=== PATIENT | male | born 1955 | race African-American/Black ===

== ENCOUNTER 2018-01-06 14:10 | Inpatient (IN) | payer BC, SELFPAY ==
[2018-01-06] MEDS ORDERED: Ondansetron HCl/PF 4 MG/2 ML Vial ONE (14:45)
[2018-01-06 15:37] LABS: #Basophils 0.1 thou/uL (0.0-0.2); #Lymphocytes 1.7 thou/uL (1.20-3.40); #Monocytes 0.8 thou/uL (0.11-0.59); #Neutrophils 7.6 thou/uL (1.40-6.50); %Basophils 0.5 % (0.0-1.0); %Eosinophils 0.3 % (0.0-10.0); %Lymphocytes 16.6 % (21.0-51.0); %Monocytes 7.9 % (0.0-10.0); %Neutrophils 74.8 % (42.0-75.0); Hemoglobin 13.7 g/dL (14.0-18.0); Mean Corpuscular HGB CONC 33.6 g/dL (32.0-36.0); Mean Platelet Volume 7.7 fL (7.4-10.4); Platelet Count 262 thou/uL (130-400); RBC Distribution Width 13.1 % (11.5-14.5); White Blood Cell (WBC) Count 10.2 thou/uL (4.8-10.8)
[2018-01-06 15:39] LABS: ALT (SGPT) 30 U/L (8-55); AST (SGOT) 104 U/L (5-34); Alkaline Phosphatase 79 U/L (40-150); Anion Gap 23 mmol/L (10-20); BUN (Urea Nitrogen) 10 mg/dL (8.4-25.7); Bilirubin, Total 2.3 mg/dL (0.2-1.2); Calc. Creatinine Clearance 0 mL/min (70-130); Calcium 9.4 mg/dL (7.8-10.44); Carbon Dioxide 27 mmol/L (23-31); Chloride 87 mmol/L (98-107); Estimated GFR-MDRD 32; Globulin 4.8 g/dL (2.4-3.5); Glucose 101 mg/dL (80-115); Lipase 97 U/L (8-78); Potassium 3.4 mmol/L (3.5-5.1); Protein, Total 9.8 g/dL (5.8-8.1); Sodium 134 mmol/L (136-145)
[2018-01-06] MEDS ORDERED: Ondansetron HCl/PF 4 MG/2 ML Vial IVP PRN (18:53)
[2018-01-06] MEDS ORDERED: Guaifenesin DM 100-10/5 ML UDCUP PO PRN (18:53)
[2018-01-06] MEDS: Lactated Ringer's 1,000 ML IV SCH (19:43)
[2018-01-06] MEDS ORDERED: Ciprofloxacin Lactate/D5W 200 MG in Premix Bag 1 BAG IVPB SCH (20:00)
[2018-01-06 20:34] VITALS: BMI 18.8
[2018-01-06 20:40] LABS: HBCM Index 0.09 S/CO (0-0.79); HBSAg Index 0.25 S/CO (0-0.99); HIV (1/2) Antibody/Antigen Non-Reactive (NonReactive); HIV 1/2 INDEX 0.16 S/CO (<1.00); Hep A IgM AB Non-Reactive (NonReactive); Hep A IgM S/CO 0.11 S/CO (0-0.79); Hep B Surf Ag Non-Reactive S/CO (NonReactive); Hep C IgG Ab Non-Reactive (NonReactive); Hep C Index 0.09 S/CO (0-0.79); Hepatitis B Core IGM Abs Non-Reactive (NonReactive)
[2018-01-06] MEDS: metroNIDAZOLE 250 MG in Admixture Fee 1 EACH IVPB SCH (22:03)
--- NOTE | 2018-01-06 22:11 | CT ---
CT OF ABDOMEN AND PELVIS PERFORMED WITHOUT CONTRAST ENHANCEMENT: 01/06/18 HISTORY: Abdominal pain, nausea and vomiting. COMPARISON: None. The lung bases are clear. The liver, spleen, and pancreas regions are unremarkable. Gallstones are no laureano. The right and left adrenal glands are normal. There is a severely atrophic right kidney. The left kid chris shows a lobulated contour. There s marked dilatation of the left collecting system as very dilate d left ureter to just below the pelvic brim at which point there is an abrupt change in caliber to a normal caliber distal 4 to 5 cm of the ureter. The bladder wall is thickened. There is no significant pelvic lymphadenopathy. No significant mesenteric or periaortic adenopathy. Colonic diverticulosis is incidentally noted. IMPRESSION: 1. Severely atrophic right kidney with some compensatory hypertrophy to the left kidney with wha t appears to be severe chronic hydronephrosis and hydroureter of the left collecting system. The uret er is dilated to below the pelvic brim where it abruptly changes to normal caliber. It could be relat ed to a stricture or some type of mass at this level. The dilatation appears chronic as the ureter is dilated distally by as much as 2.4 cm. 2. Bladder wall thickening. 3. Colonic diverticulosis. 4. Normal appendix. POS: [facility]
[2018-01-06 22:20] LABS: Bilirubin Moderate (Negative); Clarity CLEAR (Clear); Glucose, Urine (Dipstick) Negative (Negative); Leukocyte Negative (Negative); Nitrite Negative (Negative); Protein, Urine (Dipstick) 300 mg/dL (Neg-Trace); Specific Gravity, Urine 1.012 (1.002-1.036)
[2018-01-06 22:23] LABS: Bacteria/HPF None Seen HPF (None Seen); Blood, Urine Negative (Negative); Hyaline Casts/LPF 4-6 HYALINE CAST LPF (0-3 Hyaline); Pathc Cast-AUWi Flag 0.87 (0-2.49); RBC/HPF 0-3 HPF (0-3); Squamous Epithelial 0-3 HPF (0-3); WBC/HPF 0-3 HPF (0-3)
--- NOTE | 2018-01-06 23:28 | HP ---
REASON FOR ADMISSION: Severe dehydration, acute kidney injury, acute gastroenteritis. HISTORY OF PRESENT ILLNESS: The patient gives history of severe nausea and vomiting from the last two days. He has not been able to keep anything down. His vomiting has been bilious (green). He has also had diarrhea from last 5 days and it has been watery. No blood in the stool. There is no mucus in the stool. He has lost appetite and does not feel like eating anymore. He is also shaking and does not have strength to ambulate. He finally called his sister who in turn called EMS and patient was brought here. PAST MEDICAL AND SURGICAL HISTORY: Hypertension, benign prostatic hypertrophy, depression. CURRENT MEDICATIONS: Tamsulosin 0.4 mg p.o. daily, sertraline 50 mg daily, folic acid 1 mg daily. ALLERGIES: No known drug allergies. PERSONAL HISTORY: Does not abuse alcohol except for social drinking or drugs. No history of smoking. He ambulates by himself. Works in [employer]. FAMILY HISTORY: Mother is healthy and living. Father of kidney cancer at the age of 86 years. The patient is single, not and has no children. CODE STATUS: FULL. Power of corporate attorney is one of his sisters. It is either, Ms. Humza Loera or Ms. Elena Lange. REVIEW OF SYSTEMS: The following complete review of systems was negative, unless otherwise mentioned in the HPI or below: Constitutional: Weight loss or gain, ability to conduct usual activities. Skin: Rash, itching. Eyes: Double vision, pain. ENT/Mouth: Nose bleeding, neck stiffness, pain, tenderness. Cardiovascular: Palpitations, dyspnea on exertion, orthopnea. Respiratory: Shortness of breath, wheezing, cough, hemoptysis, fever or night sweats. Gastrointestinal: Poor appetite, abdominal pain, heartburn, nausea, vomiting, constipation, or diarrhea. Genitourinary: Urgency, frequency, dysuria, nocturia. Musculoskeletal: Pain, swelling. Neurologic/Psychiatric: Anxiety, depression. Allergy/Immunologic: Skin rash, bleeding tendency. PHYSICAL EXAMINATION: GENERAL: The patient is a 62-year-old male who is currently not in any acute distress. VITAL SIGNS: Blood pressure 160/112, pulse 100 per minute, respiratory rate is 18 per minute, temperature 98.5 degrees Fahrenheit, saturating 96% on room air. NECK: Supple, no elevated JVD. HEENT: Extraocular muscles intact. Pupils reacting to light. Oral cavity mucous membranes are dry. No exudates or congestion. CARDIOVASCULAR: S1, S2 heard. Regular rhythm. RESPIRATORY: Air entry 1+ bilaterally. No rales or rhonchi. ABDOMEN: Soft, bowel sounds heard. No tenderness, rigidity or guarding. The patient has voluntary guarding likely he is very sensitive to touch and feels ticklish. EXTREMITIES: No peripheral edema or calf tenderness. VASCULAR SYSTEM: Peripheral pulses 1+ bilateral, no ischemic ulcerations or gangrene. CENTRAL NERVOUS SYSTEM: No gross focal deficits noted. Patient is alert, awake , oriented well. PSYCHIATRIC: The patient's mood is euthymic. No hallucinations or delusions. LABORATORY AND X-RAY FINDINGS: White count of 10, H&H 13 and 40, platelet count is 262, MCV is 104 with 74% neutrophils. Potassium is 3.4, serum bicarbonate 27, BUN 10, creatinine 2.4, total bilirubin 2.3, AST 104, ALT 30, albumin is 5.0, lipase is 97. CLINICAL IMPRESSION AND PLAN: The patient will be admitted to medical floor for severe dehydration with acute kidney injury and gastroenteritis. We will obtain stool studies, blood and urine cultures as well. CT of the abdomen and pelvis without contrast in view of elevated lipase and abnormal liver enzymes/r/ o obstructive uropathy. We will obtain an HIV test along with C. diff and acute hepatitis panel as well. He will be on ringer lactate 100 mL per hour. Cipro and Flagyl empirically until cultures are back. We will consult checking department supervisor, Dr. Michael Root and Dr. Ceballos for Nephrology as well. The patient might have a component of chronic kidney disease/hypertensive nephrosclerosis looking at the ratio of BUN and creatinine. We will first hydrate him aggressively and see for any change in his renal function. MAKD
--- NOTE | 2018-01-07 00:20 | CON ---
DATE OF CONSULTATION: 01/06/2018 CONSULTING PHYSICIAN: Tucker Haddad M.D. REQUESTING PHYSICIAN: Dr. Cox. REASON FOR CONSULTATION: Elevated creatinine. IMPRESSION: 1. Elevated creatinine. This is likely acute kidney injury versus acute on chronic kidney disease i n the context of increased gastrointestinal loss. 2. Hypokalemia, likely related to dehydration, excessive gastrointestinal loss. 3. Hyperproteinemia which is likely in the context of intravascular depletion/hemoconcentration. PLAN: 1. Urinalysis to evaluate for any potential hematuria/proteinuria. 2. Renally dose all medications. 3. Rehydrate this patient and address the hypokalemia also. 4. Avoid potentially nephrotoxic agents. 5. If renal function does not improve significantly, patient to benefit from renal ultrasound. HISTORY OF PRESENT ILLNESS: History is that of 62-year-old grannis gentleman who presented here with ab dominal discomfort with nausea, vomiting, and diarrhea as well as have abdominal pain and noted with slightly elevated lipase as well as elevated creatinine. The patient does not have any history of ki dney disease, denies hematuria or frothy urine. As a result of the elevated creatinine, decision has been taken to involve Renal in the management of this case. PAST MEDICAL HISTORY: Significant for hypertension. MEDICATIONS: Reviewed and as documented on [employer]. ALLERGIES: No known drug allergy. FAMILY HISTORY: No family history of kidney disease. SOCIAL HISTORY: The patient works at [employer]. No alcohol, no illicit drug use. REVIEW OF SYSTEMS: As documented in the body of the history, the patient seems to be anxious, tremul ous. Otherwise, the rest of the system examination unremarkable. PHYSICAL EXAMINATION: GENERAL: The patient was found to be somewhat jittery with the following vital signs VITAL SIGNS: Afebrile, temperature 99.3, pulse 106, respiratory rate of 18, O2 sat 94% with blood pr essure 150/91. HEENT: Unremarkable. Moist oral mucosa. NECK: Supple. No conjunctival injection or icterus. CARDIOVASCULAR SYSTEM: First and second heart sounds were heard. RESPIRATORY SYSTEM: Clear to auscultation. DIGESTIVE SYSTEM: Revealed a benign abdomen with positive bowel sounds. EXTREMITIES: No peripheral edema. SKIN: No new gross rash. LYMPHATICS: No peripheral lymphadenopathy. SUMMARY: A 62-year-old gentleman who presented here with abdominal discomfort, nausea, vomiting, and diarrhea, and noted with elevated creatinine. Thank you for this consultation. We will follow with you.
--- NOTE | 2018-01-07 01:25 | PDOC.EVN ---
Event Note - Event Note Event Note: ct result followed, pt has severe chronic hydronephrosis, no signs of sepsis, SIRS, or acute complications except for increase bun/cr that could have been due to dehydration, not to obstruction or hydronephrosis since Pt's creatinine has improved overnight after hydration, we will consult urology will follow recommendations.
[2018-01-07 02:48] LABS: Anion Gap 19 mmol/L (10-20); BUN (Urea Nitrogen) 10 mg/dL (8.4-25.7); Calc. Creatinine Clearance 31 mL/min (70-130); Calcium 7.7 mg/dL (7.8-10.44); Carbon Dioxide 26 mmol/L (23-31); Chloride 94 mmol/L (98-107); Estimated GFR-MDRD 41; Glucose 80 mg/dL (80-115); Potassium 3.3 mmol/L (3.5-5.1); Sodium 136 mmol/L (136-145)
[2018-01-07] MEDS: Lactated Ringer's 1,000 ML IV SCH ×2 (04:44→14:02)
[2018-01-07] MEDS: metroNIDAZOLE 250 MG in Admixture Fee 1 EACH IVPB SCH ×2 (04:45→14:01)
[2018-01-07 05:22] LABS: #Basophils 0.1 thou/uL (0.0-0.2); #Eosinphils 0.1 thou/uL (0.0-0.7); #Lymphocytes 2.2 thou/uL (1.20-3.40); #Monocytes 0.7 thou/uL (0.11-0.59); %Basophils 0.8 % (0.0-1.0); %Eosinophils 0.9 % (0.0-10.0); %Lymphocytes 24.4 % (21.0-51.0); %Monocytes 7.5 % (0.0-10.0); %Neutrophils 66.5 % (42.0-75.0); Hemoglobin 12.1 g/dL (14.0-18.0); Mean Corpuscular HGB CONC 33.8 g/dL (32.0-36.0); Mean Corpuscular Hemoglobin 35.6 pg (27.0-31.0); Mean Platelet Volume 7.5 fL (7.4-10.4); Platelet Count 206 thou/uL (130-400); RBC Distribution Width 12.9 % (11.5-14.5); White Blood Cell (WBC) Count 9.1 thou/uL (4.8-10.8)
[2018-01-07 05:32] LABS: Albumin 4.1 g/dL (3.4-4.8); Anion Gap 19 mmol/L (10-20); BUN (Urea Nitrogen) 11 mg/dL (8.4-25.7); BUN/Creatinine Ratio 5.53; Calc. Creatinine Clearance 32 mL/min (70-130); Carbon Dioxide 26 mmol/L (23-31); Chloride 94 mmol/L (98-107); Estimated GFR-MDRD 41; Glucose 83 mg/dL (80-115); Phosphorus 2.9 mg/dL (2.3-4.7); Potassium 3.4 mmol/L (3.5-5.1); Sodium 136 mmol/L (136-145)
[2018-01-07] MEDS: Tamsulosin HCl 0.4 MG CAP PO SCH (08:45)
[2018-01-07] MEDS: Vancomycin HCl 25 MG/ML Oral PO SCH ×4 (08:45→20:19)
[2018-01-07] MEDS: Enoxaparin Sodium 30 MG/0.3 ML SYRINGE SC SCH (08:46)
[2018-01-07] MEDS: Folic Acid 1 MG TAB PO SCH (08:46)
--- NOTE | 2018-01-07 11:24 | PDOC.PN ---
- Subjective Encounter Start Date: 01/07/18 Encounter Start Time: 11:22 Says he has kept water down. Feels like he could eat. - Objective Resuscitation Status: Resuscitation Status FULL:Full Resuscitation Vital Signs & Weight: Vital Signs (12 hours) Temp Pulse Resp BP BP Pulse Ox 01/07/18 07:09 98.8 F 106 H 16 177/108 H 98 01/07/18 05:09 144/85 H 01/07/18 04:24 99 F 101 H 16 158/103 H 01/07/18 00:00 98.6 F 109 H 16 153/98 H 98 Weight Weight 127 lb 13.89 oz I&O: 01/06/18 01/07/18 01/08/18 06:59 06:59 06:59 Intake Total 1230 Output Total 250 Balance 980 Result Diagrams: 01/07/18 04:50 01/07/18 04:50 Phys Exam - Physical Examination Constitutional: NAD Shaky HEENT: PERRLA Respiratory: no wheezing, no rales, no rhonchi, clear to auscultation bilateral Cardiovascular: RRR, no significant murmur Tachy Gastrointestinal: soft, non-tender, no distention, positive bowel sounds Musculoskeletal: no edema Deviation from normal: Slight psychomotor delay. Slight tremor. Dx/Plan (1) Gastroenteritis Code(s): K52.9 - NONINFECTIVE GASTROENTERITIS AND COLITIS, UNSPECIFIED Status : Acute (2) Nausea & vomiting Code(s): R11.2 - NAUSEA WITH VOMITING, UNSPECIFIED Status: Acute (3) Diarrhea Code(s): R19.7 - DIARRHEA, UNSPECIFIED Status: Acute (4) Alcoholism Code(s): F10.20 - ALCOHOL DEPENDENCE, UNCOMPLICATED Status: Acute (5) Acute renal insufficiency Code(s): N28.9 - DISORDER OF KIDNEY AND URETER, UNSPECIFIED Status: Acute (6) Hydronephrosis Code(s): N13.30 - UNSPECIFIED HYDRONEPHROSIS Status: Acute (7) Renal atrophy, right Code(s): N26.1 - ATROPHY OF KIDNEY (TERMINAL) Status: Acute (8) Elevated blood pressure reading Code(s): R03.0 - ELEVATED BLOOD-PRESSURE READING, W/O DIAGNOSIS OF HTN Status : Acute Comment: Likely secondary to some EtOH WD. - Plan * Symptoms improving. Will attempt to advance diet. * Continue with Cipro/Flagyl and await stool studies. * Start ASE protocol for alcohol withdrawal. - Patient now admits to drinking 2- 3 Vodka drinks daily. * Urology consult pending. He has atrophied right kidney with some atrophy on the left and hydroureter to a limited portion of the left ureter. * Likely has some acute on chronic renal disease, but his baseline is not known. Nephrology following.
[2018-01-07] MEDS: Lorazepam 1 MG TAB PO PRN (12:10)
--- NOTE | 2018-01-07 12:42 | CON ---
DATE OF CONSULTATION: 01/07/2018 CONSULTING PHYSICIAN: Rick Leonardo M.D. CONSULTED PHYSICIAN: Rosas Vinson M.D. REASON FOR CONSULTATION: Severe hydronephrosis. HISTORY OF PRESENT ILLNESS: Mr. Loera is a 62-year-old black male, who initially presented to the emergency room with nausea and feelings of malaise. While in the ER, he underwent a CT of the abdom en and pelvis, which demonstrated a severely atrophic right kidney with hydronephrotic left kidney, d own to a point two-thirds the way down the ureter. The patient also had an acute kidney injury with a creatinine of 2.48. He was admitted to the Hospitalist Service and has undergone hydration, which improved his creatinine down to 1.99. His creatinine apparently, in 2014, was normal. He states he has no prior history of urinary tract infections, flank pain, hematuria, voiding difficulties, or pre vious urologic surgeries. He has never undergone any type of abdominal surgery, radiation, or chemot herapy-type treatments. He states he has passed kidney stones in the past, but they were many years ago and he does not remember which side they were on. Currently, he states he is not having any pain . Throughout the course of his hospitalization, it did become apparent that he drinks a large amount of vodka every day and started to have shakiness and withdrawal-type symptoms and is currently being treated for alcohol withdrawal by the Hospitalist Service. Nephrology is also seeing him and is cur rently managing his electrolytes and his hydration status. ALLERGIES: None. CURRENT HOME MEDICATIONS: 1. Flomax 0.4 mg p.o. daily. 2. Sertraline 50 mg p.o. daily. 3. Folate 1 mg p.o. daily. PAST MEDICAL HISTORY: 1. Hypertension. 2. Benign prostatic hypertrophy. 3. Depression. 4. Nephrolithiasis. PAST SURGICAL HISTORY: None. FAMILY HISTORY: Significant for a father, who of kidney cancer at the age of 86. SOCIAL HISTORY: The patient is not , has no children. He denies tobacco abuse or illicit lidia g use. He initially denied alcohol abuse as well, but now admits to drinking approximately 3 cocktai ls with vodka a day, although it is not clear whether this is all that he drinks or if he drinks more than this. REVIEW OF SYSTEMS: A 12-point review of systems was unremarkable other than the previously noted janette sea, which is now resolved. He denies any flank pain. Remainder of 12-point review of systems was r eviewed and negative other than what was commented on the HPI. PHYSICAL EXAMINATION: VITAL SIGNS: Temperature 98.8, pulse 106, respirations 16, blood pressure 177/108, saturations 98% o n room air. GENERAL: In no apparent distress, communicative, alert, built is thin. HEENT: Normocephalic, atraumatic. Sclerae are nonicteric. Pupils are symmetric and round. Moist m ucous membranes. Dentition is adequate. Trachea midline. CARDIOVASCULAR: Sinus tachycardia with normal S1 and S2. Symmetric pulses. CHEST: No increased work of breathing, clear to auscultation anteriorly. Symmetric expansion of the lungs. ABDOMEN: Soft, nontender, nondistended, positive bowel sounds. No obvious organomegaly, no suprapub ic tenderness. BACK: No CVA tenderness. GENITOURINARY: Penis is nonfocal. Testes are bilaterally descended. KRISTYN was deferred at this time. EXTREMITIES: No clubbing, cyanosis, or edema. MUSCULOSKELETAL: No joint deformities or joint erythema noted. Full range of motion. NEUROLOGIC: Cranial nerves II-XII appear grossly intact. No focal or sensory deficits identified. No obvious tremor at the current time. PSYCHIATRIC: Alert and oriented x3, appropriate mood and affect at the current time. LABORATORY EVALUATION: A full set of labs in the [email or web address], which I have reviewed. Of note, arnoldo cash's white count is currently 9.1 with hemoglobin of 12.1, platelets are 206. Creatinine is curr ently 1.99, down from 2.48. Bilirubin was elevated at 2.3. The patient's urine shows 300 protein, t race ketones, moderate bilirubin, and 4-6 hyaline casts with no rbc's or wbc's. CT from 01/06/2018 d emonstrates a severely atrophic right kidney with some compensatory hypertrophy of the left kidney wh ich appears to be severe chronic hydronephrosis and hydroureter of the left collecting system. The u reter is dilated to below the pelvic brim where it abruptly changes to a normal caliber. There may b e some type of stricture or mass at this level, although there is no obvious stone noted. The dilati on appears chronic and the ureter is dilated at the maximum at 2.4 cm. There is bladder wall thicken ing, colonic diverticulosis, and a normal appendix. I have reviewed these images myself and agree wi th the findings. The right kidney is extremely atrophic, likely congenitally atrophic with compensat ory lobulated hypertrophy of the left kidney, which is hydronephrotic. ASSESSMENT AND PLAN: A 62-year-old black male with a solitary functioning left kidney, which is lynda rely hydronephrotic and acute kidney injury, likely secondary to dehydration. He is improving with h ydration and IV fluids, and I do feel that this is his primary problem; however, given that he does o nly have a solitary left kidney, which is hydronephrotic, this will ultimately need to be addressed o r the patient will likely have progressive chronic kidney disease and potential progression towards d ialysis. As such, I have discussed with the patient about taking him to the operating room for cysto scopy, retrograde pyelogram, ureteroscopy, balloon dilation of a possible stricture versus biopsy if there is a tumor found. If a biopsy or dilation was performed, then he would likely need to keep a s tent in for approximately 2-3 weeks, which I have discussed with him, and he is in agreement with. R isks of the procedure include urinary tract infection, hematuria, urinary retention, damage to the ur eter, stricture recurrence of a stricture is present, need for further surgeries, and damage or perfo ration of the ureter itself. He understands these risks and wishes to proceed forward. We will plan for the procedure tomorrow. He is on the ASE protocol for alcohol withdrawal and I will have Anesth esia see him as well to ensure that he is okay to go forward with surgery tomorrow. If there are any problems, we can always delay his cystoscopy and ureteral stent placement until a later date. Keyshawn er, it would be ideal to do it on this admission while he is here. I will continue to follow along a nd make recommendations accordingly.
[2018-01-07] MEDS: Saccharomyces boulardii 250 MG CAP PO SCH (20:20)
[2018-01-07 22:09] LABS: Creatinine, Urine 45.98 mg/dL (63-166)
[2018-01-07] MEDS ORDERED: Vancomycin HCl 25 MG/ML Oral PO SCH (23:45)
[2018-01-08] MEDS: Lactated Ringer's 1,000 ML IV SCH ×3 (02:04→22:53)
[2018-01-08 05:42] LABS: #Eosinphils 0.2 thou/uL (0.0-0.7); #Lymphocytes 1.7 thou/uL (1.20-3.40); #Monocytes 0.6 thou/uL (0.11-0.59); %Basophils 0.6 % (0.0-1.0); %Eosinophils 2.3 % (0.0-10.0); %Lymphocytes 22.6 % (21.0-51.0); %Monocytes 7.8 % (0.0-10.0); %Neutrophils 66.8 % (42.0-75.0); Mean Corpuscular HGB CONC 33.9 g/dL (32.0-36.0); Mean Corpuscular Hemoglobin 35.7 pg (27.0-31.0); Mean Platelet Volume 7.6 fL (7.4-10.4); Platelet Count 173 thou/uL (130-400); RBC Distribution Width 12.9 % (11.5-14.5); Red Blood Cell (RBC) Count 3.07 mill/uL (4.70-6.10); White Blood Cell (WBC) Count 7.5 thou/uL (4.8-10.8)
[2018-01-08 05:56] LABS: Anion Gap 14 mmol/L (10-20); BUN (Urea Nitrogen) 7 mg/dL (8.4-25.7); Calc. Creatinine Clearance 44 mL/min (70-130); Calcium 7.6 mg/dL (7.8-10.44); Carbon Dioxide 27 mmol/L (23-31); Chloride 99 mmol/L (98-107); Estimated GFR-MDRD 61; Glucose 81 mg/dL (80-115); Sodium 137 mmol/L (136-145)
--- NOTE | 2018-01-08 06:46 | PRG ---
DATE OF SERVICE: 01/07/2018 SUBJECTIVE: The patient is seen and examined, noted with the following: OBJECTIVE: VITAL SIGNS: Afebrile, temperature 98.5, pulse 109, respiratory rate 16, O2 sat 98% with blood press ure 150/99. HEENT: Unremarkable. CARDIOVASCULAR: First and second heart sounds are heard. RESPIRATORY: Clear to auscultation. DIGESTIVE: Benign abdomen with positive bowel sounds. EXTREMITIES: No peripheral edema. SKIN: No new gross rash. LYMPHATICS: No peripheral lymphadenopathy. LABORATORY INVESTIGATION: Showed a potassium of 3.4, creatinine down to 1.99. IMPRESSION: 1. Acute on chronic kidney disease, which seems to have been improving. 2. Hypokalemia. PLAN: 1. Replete potassium. 2. Renal supportive measures. 3. Outpatient Nephrology followup. 4. Further management to be dependent on the clinical course. 5. We will evaluate the patient's protein loss in the urine due to the presence of proteinuria.
--- NOTE | 2018-01-08 07:04 | CON ---
DATE OF CONSULTATION: 01/07/2018 REASON FOR CONSULTATION: Nausea, vomiting, and diarrhea. CONSULTING PHYSICIAN: Praveena Cox M.D. HISTORY OF PRESENT ILLNESS: The patient is a 62-year-old male with past medical history of hypertens ion, benign prostatic hyperplasia, and depression, presenting with complaints of nausea, vomiting, an d diarrhea. For approximately 2-3 months ago, he stated that he had an episode of diarrhea, having a pproximately 3-4 liquid bowel movements per day that lasted approximately 2-3 days with spontaneous r esolution; however, he was in his usual state of health until approximately 3 days ago when he experi enced increased nausea and vomiting, for which he stated (and mother) was vomiting almost constantly. This was primarily associated with the ingestion of any solids or liquids with the initiation of vo miting shortly thereafter (within 20 minutes). This was associated with increased intermittent right lower quadrant abdominal pain that would last for approximately 20-30 minutes, which has a severity of 3-4/10 and spontaneously resolve at that point. The pain that he would experience in the right lo wer quadrant was considered a sharp, stabbing-type sensation that would not radiate to the rest of th e abdomen. However, 2 days prior to admission, he also endorsed the appearance of increased diarrhea characterized as having 3 liquid bowel movements per day with no difficulty with defecation nor did he have any hematochezia or melena associated with the increased diarrhea. With the increased nausea , vomiting, diarrhea, there was a concern for dehydration, which prompted him to seek healthcare assi stance at the [facility] ER. While in the ER, he was noted to have significant dehydration and was ultimately admitted to the hospital for rehydration purpose as well as he was noted to have abnormal ities involving the left collecting system within the bladder and kidney concerning for left hydronep hrosis. Of note, per chart review, the patient did admit to increased amounts of alcohol use prior to admissi on with some increased nausea and vomiting and shaking associated with alcohol withdrawal it seems. So, currently, he denies any nausea, vomiting, fevers, chills, hematemesis, melena, hematochezia, dys phagia, or odynophagia. REVIEW OF SYSTEMS: A 10-category review of systems was obtained with all responses negative except f or the pertinent positives as listed in the HPI. PAST MEDICAL HISTORY: As per HPI. PAST SURGICAL HISTORY: None. FAMILY HISTORY: Denies any GI malignancies. SOCIAL HISTORY: Denies any tobacco or illicit drug use, although he does admit to drinking approxima tely 3 mixed drinks per day. OUTPATIENT MEDICATIONS: Reviewed. ALLERGIES: No known drug allergies. PHYSICAL EXAMINATION: VITAL SIGNS: Temperature 98.6, pulse 99, blood pressure 146/82, respiratory rate 16, satting 97% on room air. GENERAL: The patient was lying in bed in no acute distress. Alert and oriented x4. NECK: Supple. No JVD or scleral icterus was noted. CARDIOVASCULAR: Regular rate and rhythm with no discernible murmurs, gallops, or rubs. RESPIRATORY: Clear to auscultation bilaterally with no discernible wheezes or rales. ABDOMEN: Normoactive bowel sounds, soft, nondistended, mild tenderness to palpation in the right low er quadrant. EXTREMITIES: No cyanosis, clubbing, or edema. LABORATORY DATA: CBC with a white blood cell count of 9.1, hemoglobin 12.1, hematocrit 35.8, platele ts 206. Chemistry with sodium of 136, potassium 3.4, chloride 94, CO2 of 26, BUN 11, creatinine 1.99 , glucose 83, AST 104, ALT 30, alkaline phosphatase 79, total bilirubin 2.3, albumin 5, lipase 97. A cute hepatitis panel negative. HIV negative. Infectious stool study workup was positive for Clostri dium difficile antigen and toxin. IMAGING DATA: CT of the abdomen and pelvis obtained on 01/06/2018 showed a severely atrophic right k idney as well as a lobulated left kidney with marked dilation of the left collecting system and possi ble stricture, bladder wall thickening was also noted colonic diverticulosis was also commented upon, but there was no significant mesenteric or periaortic adenopathy, nor was there mention of colonic w all thickening consistent with colitis. ASSESSMENT AND PLAN: The patient is a 62-year-old male with past medical history of hypertension, be nign prostatic hyperplasia, and depression and alcohol abuse, presenting with increased nausea, vomit ing, and diarrhea and the acute period with infectious stool studies consistent with Clostridium diff icile colitis. Clostridium difficile colitis. The patient is presenting with a 2-3-day history of increasing nausea , vomiting, and nonbloody diarrhea that resulted in severe hydration and prompting admission [facility]. Upon evaluation in the [facility] ER, he was noted to have a CT scan showing ab normalities within the left renal system concerning for possible stricture or ureteropelvic junction stenosis/stricture, but he was also noted to have positive infectious stool studies for Clostridium d ifficile colitis. At this time, the appearance of Clostridium difficile colitis could explain all hi s presenting symptoms including nausea, vomiting, and abdominal pain on physical examination, as well as his increased diarrhea. RECOMMENDATIONS: 1. Agree with administration of oral vancomycin, but could consider decreasing dosage to 125 mg 4 ti mes daily given the mild Clostridium difficile-associated infection. 2. Agree with administration of Florastor as adjunctive therapy for Clostridium difficile colitis. 3. We would defer to Urology service about treatment of ureteral abnormalities (although this would not contribute to his Clostridium difficile colitis). 4. Agree with IV fluid hydration in light of dehydration and elevated creatinine level, which could be associated with increased fluid losses associated with Clostridium difficile-associated colitis. 5. We would continue as needed antiemetics for nausea and vomiting associated with this particular i nfection. We will continue to follow. Please call with any questions.
[2018-01-08] MEDS: Enoxaparin Sodium 30 MG/0.3 ML SYRINGE SC SCH (09:43)
[2018-01-08] MEDS: Saccharomyces boulardii 250 MG CAP PO SCH ×3 (09:57→20:01)
[2018-01-08] MEDS: Vancomycin HCl 25 MG/ML Oral PO SCH ×4 (09:57→20:00)
[2018-01-08] MEDS: Folic Acid 1 MG TAB PO SCH ×2 (09:57→14:28)
[2018-01-08] MEDS: Tamsulosin HCl 0.4 MG CAP PO SCH ×2 (09:57→14:28)
[2018-01-08] MEDS ORDERED: Levofloxacin 500 mg/D5W 100 ml Premix Bag ONE (10:43)
[2018-01-08] MEDS ORDERED: Labetalol HCl 100 MG/20 ML VIAL ONE (11:10)
[2018-01-08] MEDS ORDERED: Lidocaine 1% PF 5 ML VIAL ONE (11:15)
[2018-01-08] MEDS ORDERED: PROPOFOL 200 MG/20 ML VIAL ONE (11:15)
[2018-01-08] MEDS ORDERED: Iothalamate Meglumine 60% 50 ML VIAL FS ONE (11:32)
[2018-01-08] MEDS ORDERED: Midazolam HCl 2 mg/2 ml Vial ONE (11:41)
[2018-01-08] MEDS ORDERED: Fentanyl 100 MCG/2 ML VIAL ONE (11:41)
--- NOTE | 2018-01-08 12:20 | PRG ---
DATE OF SERVICE: 01/08/2018 SUBJECTIVE: The patient states he is feeling fine. He has no complaints today. He is currently malou eduled to undergo a cystoscopy and left ureteral dilation with stenting. OBJECTIVE: VITAL SIGNS: Temperature 98.8, pulse 88, respirations 16, blood pressure 158/102, saturation 98% on room air. GENERAL: No apparent distress, communicative, alert. CARDIOVASCULAR: Regular rate and rhythm. CHEST: Clear to auscultation. ABDOMEN: Soft, nontender, nondistended. Positive bowel sounds. GENITOURINARY: Unremarkable. EXTREMITIES: No clubbing, cyanosis or edema. LABORATORY DATA: The patient's white count today is 7.5 with hemoglobin of 11. Creatinine has decre ased now down to 1.43 with a potassium of 3. ASSESSMENT: A 62-year-old white male with a solitary functioning left kidney, which is hydronephroti c and possibly has ureteral stricture. His creatinine has improved remarkably with IV hydration manju cating that he probably does not have a high-grade obstruction; however, he does have a solitary kidn ey, which is hydronephrotic and it would be prudent to consider intervention to have this kidney work as well as possible to avoid long-term chronic kidney disease and potential progression towards jimbo l failure in the future. I have discussed all this with him and he is still in agreement to go forwa rd with the cystoscopy and balloon dilation with stenting. All risks and benefits of the procedure w ere discussed yesterday and he still agrees to proceed forward. PLAN: Continue to OR for cystoscopy, left ureteroscopy, retrograde pyelogram, balloon dilation, poss ible biopsy and stent placement.
[2018-01-08] MEDS ORDERED: hydrALAZINE 20 MG/ML VIAL ONE (12:58)
--- NOTE | 2018-01-08 13:39 | PRG ---
DATE OF SERVICE: 01/08/2018 REASON FOR CONSULTATION: Nausea, vomiting, and diarrhea. SUBJECTIVE: The patient was diagnosed with Clostridium difficile colitis last night and ultimately p laced on oral vancomycin as part of treatment. Since initiation of treatment, he has had complete re solution of his abdominal pain, nausea, vomiting and has had approximately 2 semisolid bowel movement s within the last 24 hours. In relation to his GI tract, he states that he is feeling much better. Currently, denies any nausea, vomiting, fevers, chills, abdominal pain, constipation, dysphagia or od ynophagia. OBJECTIVE: VITAL SIGNS: Temperature 98.8, pulse 88, blood pressure 158/102, respiratory rate 16, satting 98% on room air. GENERAL: The patient is lying in bed in no acute distress. Alert and oriented x4. CARDIOVASCULAR: Regular rate and rhythm. RESPIRATORY: Clear to auscultation bilaterally. ABDOMEN: Normoactive bowel sounds, soft, nontender, nondistended. EXTREMITIES: No cyanosis, clubbing or edema. LABORATORY DATA: CBC with a white blood cell count of 7.5, hemoglobin 11, hematocrit 32.3, platelets 173. Chemistry with sodium of 137, potassium 3.0, chloride 99, CO2 27, BUN 7, creatinine 1.43, gluc ose 81. IMAGING DATA: No current GI imaging is available for review. ASSESSMENT AND PLAN: The patient is a 62-year-old male with past medical history of hypertension, be nign prostatic hyperplasia, depression, and alcohol abuse presenting with increased nausea, vomiting, and diarrhea with infectious stool studies consistent with Clostridium difficile colitis. Clostridium difficile colitis. Patient presenting with a 2-3 day history of increasing nausea, vomit ing, and nonbloody diarrhea that resulted in severe dehydration and prompted admission for healthcare evaluation. Upon evaluation, infectious stool studies were positive for Clostridium difficile colit is in addition to a CT scan showing a possible stricture within the left renal collecting system. Af ter initiation of treatment for his Clostridium difficile colitis with oral vancomycin, he has had co mplete resolution of his abdominal pain, nausea, and vomiting. He is now having decreased frequency of the stools as well as increased stool consistency indicating good response to treatment. RECOMMENDATIONS: 1. Agree with administration of oral vancomycin. Would continue dosing for a 14-day total therapy. 2. Agree with administration of 4 Storz adjunctive therapy. 3. Agree with IV fluid hydration in light of recent dehydration, nausea and vomiting; however, as th e patient's diet is advanced I would consider discontinuing the IV fluids. 4. We would continue as needed antiemetics for nausea and vomiting. We will sign off at this time given the patient's resolution of his abdominal pain and response to tr eatment. Please call with any additional questions.
--- NOTE | 2018-01-08 14:25 | RAD ---
RETROGRADE IVP: Date: 01/08/18 HISTORY: 62-year-old male with history of distal left ureteral obstruction and stent placement. COMPARISON: 01/06/18. FINDINGS: Initial injection demonstrates contrast to only extend several centimeters into the distal left urete r and no more cranial extension beyond that point. This location corresponds to the marked transition from very markedly abnormally dilated upper collecting system and upper ureter to a nondilated urete r as seen on the prior CT. IMPRESSION: Left ureteral stent placement, high grade obstruction to distal left ureter which does not represent a calculus. POS: DAVE
[2018-01-08] MEDS: Lorazepam 1 MG TAB PO PRN (14:28)
--- NOTE | 2018-01-08 16:40 | OP ---
DATE OF PROCEDURE: 01/08/2018 SERVICE: Urology. SURGEON: Rosas Vinson M.D. PREOPERATIVE DIAGNOSIS: Hydronephrosis. POSTOPERATIVE DIAGNOSIS: Ureteral stricture with hydronephrosis. PROCEDURE PERFORMED: Cystoscopy with retrograde pyelogram on the left, left balloon ureteral dilatio n and placement of a 6 x 26 double-J stent on the left. INDICATIONS FOR PROCEDURE: Mr. Loera is a 62-year-old black male who presented with acute kidney injury secondary to dehydration. As a part of his workup, he was noted to have severe hydronephrosis on the left tapering at a point in the distal ureter without clear etiology. He is being brought to the operating room due to his elevated creatinine and hydronephrosis and a solitary functioning kidn ey as his right kidney is completely atrophic. Risks and benefits have been discussed and he has agr eed to proceed forward. DESCRIPTION OF PROCEDURE: After identification of armband and verification of consent, the patient w as brought back to the operating room and underwent general anesthesia with endotracheal intubation. He was then placed in dorsal lithotomy position, prepped and draped in sterile fashion. After appro priate timeout, a lubricated 22 Georgian rigid cystoscope was introduced per urethra into the bladder. The urethra was normal without strictures or lesions. The prostate was only mildly hypertrophic wit h a relatively open bladder neck. Both ureters were in their orthotopic location and the bladder was otherwise unremarkable other than some mild petechiae throughout the bladder. Attention was turned to the left ureteral orifice which was cannulated with a 5 Georgian Pollack catheter. Retrograde pyelo gram was performed which demonstrated contrast going only up to the distal ureter and not into anywhe re in the mid to proximal ureter as the contrast was just effluxing up the ureteral orifice. A senso r wire was advanced with ease through the ureteral orifice up to the level of the renal pelvis. The cystoscope was then removed and a semirigid ureteroscope was brought in alongside the sensor wire int o the distal ureter. Immediately apparent, there was a very tight probably 1-2 Georgian diameter stric ture which only permitted passage of the wire going up into the kidney. This was probably the point of obstruction. There did not appear to be any tumors material stone or any other concerning feature s. More than likely given the patient's self-reported history of kidney stones in the past, this may have been the reason why the patient has a stricture now. In either case, we went ahead and decided to perform balloon dilation. The site of the stricture was marked radiographically and then the ure teroscope removed. A UroMax 15 Georgian, 6 cm balloon dilator was brought in and placed over the stric ture. The stricture was dilated to 15 Georgian and held in position for 30 seconds. The balloon was t hen taken down and the dilator removed. Ureteroscope was then brought back in alongside the sensor w cruz to reevaluate the strictured area. It was now wide open, although it was relatively tortuous in this area. With the use of an angled Glidewire, we were able to feed that through the ureteroscope a nd allow passage of the ureteroscope into the proximal ureter, which demonstrated a very large diamet er wide bore ureter, but within normal urothelium without stones or any other concerning features. I t was felt to be a benign stricture without any malignancy. I did not feel the need to take any biop sies as there was no concerning findings at the site of the stricture. There was full thickness spli tting of the stricture at the side of the dilation. Therefore, stenting is mandatory. The ureterosc ope was withdrawn and the cystoscope was backloaded over the sensor wire back into the bladder. A 6 x 26 double-J stent was advanced over the sensor wire up to the level of the renal pelvis. The wire was then removed leaving a good curl in the renal pelvis and good curl in the bladder. The bladder w as then emptied and the cystoscope removed. The patient was then awakened and taken to PACU for adiel very in stable condition. COMPLICATIONS: None. ESTIMATED BLOOD LOSS: Minimal. RETAINED TUBES AND DRAINS: A 6 x 26 double-J stent on the left. SPECIMENS: None. DISPOSITION: The patient will be admitted back to the medicine service. Once he is deemed recovered and has had his C. diff treated, we will then plan for followup as an outpatient in approximately 3- 4 weeks for cystoscopy and stent removal. Subsequent ultrasound will be necessary along with a possi ble IVP or Lasix renogram to evaluate for persistent blockage or obstruction on that side.
--- NOTE | 2018-01-08 18:04 | PDOC.PN ---
- Subjective Encounter Start Date: 01/08/18 Encounter Start Time: 08:30 No new complaints. Feels well. Does not feel shaky. No nausea. Diarrhea improving. - Objective Resuscitation Status: Resuscitation Status FULL:Full Resuscitation Vital Signs & Weight: Vital Signs (12 hours) Temp Pulse Resp BP Pulse Ox 01/08/18 14:12 98.1 F 104 H 14 144/86 H 100 01/08/18 07:10 98.8 F 88 16 158/102 H 98 01/08/18 06:13 172/92 H Weight Admit Weight 127 lb 13.888 oz Weight 127 lb 13.888 oz I&O: 01/07/18 01/08/18 01/09/18 06:59 06:59 06:59 Intake Total 1230 1500 Output Total 250 450 Balance 980 1050 Result Diagrams: 01/08/18 04:36 01/08/18 04:36 Phys Exam - Physical Examination Constitutional: NAD Respiratory: no wheezing, no rales, no rhonchi, clear to auscultation bilateral Cardiovascular: RRR, no significant murmur, no rub Gastrointestinal: soft, non-tender, no distention, positive bowel sounds Musculoskeletal: no edema Neurological: non-focal Psychiatric: normal affect Dx/Plan (1) C. difficile colitis Status: Acute Comment: On oral vanc. Symptoms improving. (2) Gastroenteritis Code(s): K52.9 - NONINFECTIVE GASTROENTERITIS AND COLITIS, UNSPECIFIED Status : Acute (3) Nausea & vomiting Code(s): R11.2 - NAUSEA WITH VOMITING, UNSPECIFIED Status: Resolved (4) Diarrhea Code(s): R19.7 - DIARRHEA, UNSPECIFIED Status: Acute Comment: improved (5) Alcoholism Code(s): F10.20 - ALCOHOL DEPENDENCE, UNCOMPLICATED Status: Acute Comment: On Librium low dose, scheduled. Doing very well with that. (6) Acute renal insufficiency Code(s): N28.9 - DISORDER OF KIDNEY AND URETER, UNSPECIFIED Status: Acute Comment: Much improved with hydration. Because of that, looks like it is more related to dehydration that the obstruction, but likely a combination. (7) Hydronephrosis Code(s): N13.30 - UNSPECIFIED HYDRONEPHROSIS Status: Acute Comment: Had balloon dilatation of the left ureteral stenosis today. Stent placed (8) Renal atrophy, right Code(s): N26.1 - ATROPHY OF KIDNEY (TERMINAL) Status: Acute (9) Elevated blood pressure reading Code(s): R03.0 - ELEVATED BLOOD-PRESSURE READING, W/O DIAGNOSIS OF HTN Status : Acute Comment: Continue to monitor. May need med adjustments at discharge. - Plan * Hope to discharge tomorrow on oral vanc.
[2018-01-08] MEDS: Acetaminophen 325 MG TAB PO PRN (20:02)
[2018-01-09] MEDS: Acetaminophen 325 MG TAB PO PRN (03:55)
[2018-01-09] MEDS: Lactated Ringer's 1,000 ML IV SCH ×2 (07:42→18:01)
[2018-01-09 08:30] LABS: Anion Gap 14 mmol/L (10-20); BUN (Urea Nitrogen) 5 mg/dL (8.4-25.7); Calc. Creatinine Clearance 46 mL/min (70-130); Calcium 7.6 mg/dL (7.8-10.44); Carbon Dioxide 27 mmol/L (23-31); Chloride 101 mmol/L (98-107); Estimated GFR-MDRD 64; Glucose 99 mg/dL (80-115); Potassium 3.1 mmol/L (3.5-5.1); Sodium 139 mmol/L (136-145)
[2018-01-09] MEDS ORDERED: Phenazopyridine HCl 97.5 MG TABLET PO PRN (08:56)
[2018-01-09] MEDS: Vancomycin HCl 25 MG/ML Oral PO SCH ×3 (09:52→17:55)
[2018-01-09] MEDS: Tamsulosin HCl 0.4 MG CAP PO SCH (09:52)
[2018-01-09] MEDS: Folic Acid 1 MG TAB PO SCH (09:52)
[2018-01-09] MEDS: Saccharomyces boulardii 250 MG CAP PO SCH (09:52)
[2018-01-09] MEDS: Enoxaparin Sodium 30 MG/0.3 ML SYRINGE SC SCH (09:53)
[2018-01-09] MEDS ORDERED: Oxybutynin 5 MG TAB PO PRN (10:27)
--- NOTE | 2018-01-09 10:39 | PRG ---
DATE OF SERVICE: 01/09/2018 SUBJECTIVE: The patient states he is having pain in his left flank today as well as in his bladder. He is having some burning with urination. He is not having any difficulty with urination. He was d iagnosed with C. diff colitis and is currently being treated for this. He underwent a balloon dilati on of his left ureteral stricture yesterday and he currently has a ureteral stent in. He denies any current fevers. OBJECTIVE: VITAL SIGNS: Temperature 98.9, pulse 102, respirations 20, blood pressure 145/84, saturation 97% on room air. GENERAL: Somewhat somnolent, but otherwise communicative and answering questions appropriately. CARDIOVASCULAR: Sinus tachycardia, normal S1 and S2. CHEST: No increased work of breathing. ABDOMEN: Soft, nontender, nondistended, positive bowel sounds. EXTREMITIES: No clubbing, cyanosis or edema. LABORATORY DATA: A full set of labs are in the [facility] system, which I have reviewed. Of note, the patient's white count is 7.5 and hemoglobin of 11, creatinine has further decreased down to 1.36. ASSESSMENT AND PLAN: A 62-year-old black male with a left ureteral stricture, status post left urete ral dilation and stent placement, also with alcohol withdrawal and C. diff colitis, currently on this admission. Postop day #1. I will give him some Pyridium to help with the dysuria. We can also giv e him some oxybutynin to help with some of the urgency and frequency symptoms. This stent will need to stay in place for approximately 3 weeks, at which point I will see him back for a cystoscopy and s tent removal. From my standpoint, he can be discharged as soon as he is stable from a medicine and G I standpoint, I will continue to follow along for an additional day or two to ensure that his symptom s are okay, at which point I think I can sign off as nothing further needs to be done from my standpo int other than keeping the stent in for 3 weeks to allow for adequate healing of the stricture. Furt her treatment will be based on followup care as an outpatient. I did express that the patient will n eed to keep followup appointments as he cannot keep the stent indefinitely. Failure to follow up and remove the stent in a timely fashion can result in stone formation, loss of the kidney, sepsis and s ignificant ureteral and renal damage. He understands and states he will keep his followup appointmen ts.
[2018-01-09] MEDS ORDERED: Potassium Chloride 40 MEQ in Sodium Chloride 0.9% 250 ML 250 ML IVPB SCH (10:45)
[2018-01-09 11:29] VITALS: TEMP 98.6
[2018-01-09 15:55] VITALS: BP 158/94
== END 2018-01-09 18:11 | disposition home or self-care (01) | DRG 660 ==
LOC: ERS 14:10 → OBSVTOIN 16:38 → T4-A 16:38
PROVIDERS: ADMIT Internal Medicine; ATTEND Internal Medicine
PROC: 0T778DZ Dilation of Left Ureter with Intraluminal Device, Via Natural or Artificial Opening Endoscopic (ICD-10-PCS; principal; 2018-01-08)
PROC: BT1F1ZZ Fluoroscopy of Left Kidney, Ureter and Bladder using Low Osmolar Contrast (ICD-10-PCS; 2018-01-08)
DX: N17.9 Acute kidney failure, unspecified (principal); F10.239 Alcohol dependence with withdrawal, unspecified; A04.72 Enterocolitis due to Clostridium difficile, not specified as recurrent; N13.1 Hydronephrosis with ureteral stricture, not elsewhere classified; E86.0 Dehydration; E87.6 Hypokalemia; E88.09 Other disorders of plasma-protein metabolism, not elsewhere classified; I12.9 Hypertensive chronic kidney disease with stage 1 through stage 4 chronic kidney disease, or unspecified chronic kidney disease; N18.9 Chronic kidney disease, unspecified; N40.0 Benign prostatic hyperplasia without lower urinary tract symptoms; F41.8 Other specified anxiety disorders; Z79.899 Other long term (current) drug therapy
CPT/HCPCS: 36415; 36416; 74176; 74420; 80048; 80053; 80069; 80074; 81001; 82570; 83690; 84156; 85025; 87040; 87045; 87046; 87081; 87086; 87324; 87389; 87449; 87493; 87899; 93005; 96361; 96374; C1758; C1769; J0360; J0744; J1610; J1650; J1956; J2001; J2250; J2405; J2704; J3010; J3480; J7050; Q9961

== ENCOUNTER 2018-03-30 12:59 | Outpatient (CLI) | payer OTHER ==
--- NOTE | 2018-03-30 15:01 | ULT ---
BILATERAL RENAL ULTRASOUND: Date: 03/30/18 HISTORY: Hydronephrosis with ureteral stricture. FINDINGS: Correlation is made with the CT scan of 01/06/18. The right kidney is not visualized. This was found to be severely atrophic on the CT scan. The left kidney measures 10.8 cm in length. There is left-sided hydroureteronephrosis. A left-sided u reteral jet is seen within the urinary bladder. There is thickening of the wall of the urinary bladde r. IMPRESSION: Left-sided hydroureteronephrosis without significant obstruction to urine flow. POS: OFF
== END 2018-03-30 13:00 | disposition home or self-care (01) ==
LOC: BICULT 12:59
PROVIDERS: ATTEND Urology
DX: N13.1 Hydronephrosis with ureteral stricture, not elsewhere classified (principal)
CPT/HCPCS: 76770

== ENCOUNTER 2019-10-31 13:50 | Emergency (ER) | payer OTHER ==
[2019-10-31 14:56] LABS: #Eosinphils 0.3 thou/uL (0.0-0.7); #Lymphocytes 1.1 thou/uL (1.20-3.40); #Monocytes 0.5 thou/uL (0.11-0.59); #Neutrophils 4.1 thou/uL (1.40-6.50); %Basophils 0.6 % (0.0-1.0); %Eosinophils 5.2 % (0.0-10.0); %Monocytes 7.9 % (0.0-10.0); %Neutrophils 68.3 % (42.0-75.0); Hemoglobin 11.6 g/dL (14.0-18.0); Mean Corpuscular HGB CONC 33.6 g/dL (32.0-36.0); Mean Corpuscular Hemoglobin 35.8 pg (27.0-31.0); Mean Platelet Volume 7.1 fL (7.4-10.4); Platelet Count 249 thou/uL (130-400); RBC Distribution Width 13.6 % (11.5-14.5); Red Blood Cell (RBC) Count 3.24 mill/uL (4.70-6.10); White Blood Cell (WBC) Count 5.9 thou/uL (4.8-10.8)
[2019-10-31 15:12] LABS: ALT (SGPT) 14 U/L (8-55); AST (SGOT) 32 U/L (5-34); Albumin 4.6 g/dL (3.4-4.8); Alkaline Phosphatase 45 U/L (40-110); Anion Gap 16 mmol/L (10-20); BUN (Urea Nitrogen) 17 mg/dL (8.4-25.7); Bilirubin, Total 1.9 mg/dL (0.2-1.2); CK (CPK) 154 U/L (30-200); Calc. Creatinine Clearance 0 mL/min (70-130); Calcium 9.2 mg/dL (7.8-10.44); Carbon Dioxide 23 mmol/L (23-31); Chloride 99 mmol/L (98-107); Estimated GFR-MDRD 43; Globulin 3.7 g/dL (2.4-3.5); Glucose 131 mg/dL (80-115); MDiff Complete? YES; Macrocytosis SLIGHT = 6-15 cells (100X) (0-5/hpf); Platelet Morphology Comment Appears Adequate; Polychromasia SLIGHT = 2-3 cells (100X) (0-2/hpf); Potassium 3.9 mmol/L (3.5-5.1); Protein, Total 8.3 g/dL (5.8-8.1); Sodium 134 mmol/L (136-145)
[2019-10-31 15:38] LABS: Bilirubin Negative (Negative); Blood, Urine Negative (Negative); Clarity Clear (Clear); Glucose, Urine (Dipstick) Normal (Negative); Ketone, Urine Negative (Negative); Leukocyte Negative Leu/uL (Negative); Nitrite Negative (Negative); Protein, Urine (Dipstick) 20 mg/dL (Neg-Trace); Specific Gravity, Urine 1.002 (1.002-1.036); pH, Urine 6.5 (5.0-9.0)
--- NOTE | 2019-10-31 15:45 | CT ---
CT ABDOMEN AND PELVIS WITHOUT IV CONTRAST: INDICATION: Left flank pain. COMPARISON: Comparison is made to a prior CT abdomen and pelvis from 01/06/2018. FINDINGS: Lung bases are clear. Liver and spleen unremarkable. Adrenal glands unremarkable. The gallbladder is mildly distended. Numerous calcified gallstones are seen layering dependently in the neck of the gallbladder. These were described previously and appear unchanged. Adrenal glands normal. Severely atrophic right kidney which was described previously. The left kidney shows compensatory hypertrophy and irregular margins which appear stable from prior e xam. There is left hydronephrosis and dilatation of the proximal left ureter to the pelvic rim where it abruptly changes caliber. This was described on 2018 report and appears similar in appearance. The urinary bladder is contracted and adequately evaluated today. No evidence of obstructing calculus. This abrupt caliber change represents a ureteral stricture or m ucosal lesion as noted on the prior study. There is evidence of prior retrograde study and stent rosario cement in 2018. Small bowel loops appear normal. Appendix is normal. Colon unremarkable. Aorta normal caliber. IMPRESSION: 1. Atrophic right kidney with compensatory hypertrophy of left kidney. Left hydronephrosis and left hydroureter. There is ureteral stricture and/or obstructing lesion in the distal left ureter which was described on the prior exam. 2. Cholelithiasis again noted. POS: AGW
[2019-10-31] MEDS ORDERED: Morphine 4 MG/ML VIAL ONE (16:12)
[2019-11-01 13:51] LABS: SARS-CoV-2 MS2 Positive; SARS-CoV-2 N Gene Negative; SARS-CoV-2 S Gene Negative; SARS-CoV-2 by NAA Not Detected (NotDetected); SARS-CoV-2 orf1ab Negative
== END 2019-10-31 19:31 | disposition home or self-care (01) ==
LOC: ERS 13:50
DX: N13.1 Hydronephrosis with ureteral stricture, not elsewhere classified (principal); K80.20 Calculus of gallbladder without cholecystitis without obstruction; F41.9 Anxiety disorder, unspecified; F32.9 Major depressive disorder, single episode, unspecified; I10 Essential (primary) hypertension
CPT/HCPCS: 36415; 74176; 80053; 81003; 82550; 83605; 85025; 87086; 87635; 94760; 96372; J2270; U0003

== ENCOUNTER 2021-01-19 17:02 | Outpatient (CLI) | payer MEDICARE ==
[2021-01-20 08:18] LABS: SARS-CoV-2 PCR by NAA Not Detected (NotDetected)
== END 2021-01-19 17:03 | disposition home or self-care (01) ==
LOC: LABBT 17:02
DX: Z01.812 Encounter for preprocedural laboratory examination (principal); Z20.822 Contact with and (suspected) exposure to COVID-19
CPT/HCPCS: U0003; U0005

== ENCOUNTER 2021-01-23 09:59 | Day surgery (SDC) | payer MEDICARE ==
[2021-01-22 12:46] VITALS: BMI 18.2
[2021-01-23] MEDS ORDERED: PROPOFOL 200 MG/20 ML VIAL ONE (12:24)
[2021-01-23] MEDS ORDERED: Lidocaine 1% PF 5 ML VIAL ONE (12:24)
== END 2021-01-23 13:25 | disposition home or self-care (01) ==
LOC: SDC 09:59
PROVIDERS: ATTEND Internal Medicine Gastroenterology
PROC: 0DB38ZX Excision of Lower Esophagus, Via Natural or Artificial Opening Endoscopic, Diagnostic (ICD-10-PCS; principal; 2021-01-23)
PROC: 0DB78ZX Excision of Stomach, Pylorus, Via Natural or Artificial Opening Endoscopic, Diagnostic (ICD-10-PCS; 2021-01-23)
PROC: 0D757ZZ Dilation of Esophagus, Via Natural or Artificial Opening (ICD-10-PCS; 2021-01-23)
DX: K21.00 Gastro-esophageal reflux disease with esophagitis, without bleeding (principal); K29.50 Unspecified chronic gastritis without bleeding; K22.10 Ulcer of esophagus without bleeding; K44.9 Diaphragmatic hernia without obstruction or gangrene; R13.10 Dysphagia, unspecified; I10 Essential (primary) hypertension; F17.200 Nicotine dependence, unspecified, uncomplicated; R63.4 Abnormal weight loss; Z68.1 Body mass index [BMI] 19.9 or less, adult; Z79.899 Other long term (current) drug therapy
CPT/HCPCS: 88305; 93005; 93010; J2704